=== PATIENT | male | born 1990 | race Caucasian/White ===

== ENCOUNTER 2019-02-20 18:10 | Emergency (ER) | payer MEDICAID ==
[~2019-02-20] VITALS: Ht 175.3 cm; Wt 78.9 kg
[2019-02-20 18:14] VITALS: BP 142/86; Ht 175.3 cm; Wt 78.9 kg
== END 2019-02-20 21:33 | disposition left against medical advice (07) ==
LOC: ED 18:10
DX: Z53.21 Procedure and treatment not carried out due to patient leaving prior to being seen by health care provider (principal)

== ENCOUNTER 2019-02-21 08:08 | Emergency (ER) | payer MEDICAID ==
[~2019-02-21] VITALS: Ht 175.3 cm; Wt 76.2 kg
[2019-02-21 08:15] VITALS: Ht 175.3 cm; Wt 76.2 kg
[2019-02-21 11:14] VITALS: BP 124/84
[2019-02-22 13:05] LABS: RAPID PLASMA REAGIN Reactive (Non Reactive)
== END 2019-02-21 11:14 | disposition home or self-care (01) ==
LOC: ED 08:08
PROVIDERS: Emergency Medicine
DX: R21 Rash and other nonspecific skin eruption (principal); F15.10 Other stimulant abuse, uncomplicated
CPT/HCPCS: 87491; 87591; J0696